=== PATIENT | male | born 2000 | race Caucasian/White ===

== ENCOUNTER 2023-11-25 03:56 | Emergency (ER) | payer BC ==
[~2023-11-25] VITALS: Ht 185.4 cm; Wt 84.1 kg
[2023-11-25 08:17] VITALS: BP 130/71; PULSE 82; TEMP 98.5
== END 2023-11-25 08:20 | disposition home or self-care (01) ==
LOC: COL.ER 03:56
DX: S09.90XA Unspecified injury of head, initial encounter (principal); S01.311A Laceration without foreign body of right ear, initial encounter; S01.111A Laceration without foreign body of right eyelid and periocular area, initial encounter; V86.65XA Passenger of 3- or 4- wheeled all-terrain vehicle (ATV) injured in nontraffic accident, initial encounter